=== PATIENT | female | born 1960 | race Two or more races ===

== ENCOUNTER 2020-08-13 13:33 | Emergency (ER) | payer SELFPAY ==
[~2020-08-13] VITALS: Ht 149.9 cm; Wt 71.7 kg
[2020-08-13 13:51] VITALS: BP 151/76
== END 2020-08-13 15:14 | disposition home or self-care (01) ==
LOC: ER 13:33
DX: R51.9 Headache, unspecified (principal); R42 Dizziness and giddiness
CPT/HCPCS: 70450